=== PATIENT | male | born 1995 | race Caucasian/White ===

== ENCOUNTER 2017-10-03 09:15 | Emergency (ER) | payer OTHER, SELFPAY ==
[2017-10-03 11:28] VITALS: BP 123/80; PULSE 66; RESP 12; TEMP 36.3; O2SAT 99
--- NOTE | 2017-10-03 11:33 | ED.UPPEXIN ---
HPI - Extremity Injury (Upper) General Chief Complaint: Trauma Stated Complaint: hammered left hand today Time Seen by Provider: 10/03/17 09:59 Source: patient Mode of arrival: ambulatory Limitations: no limitations History of Present Illness HPI narrative: Patient is here for evaluation after he hit the left palm of his hand with a hammer while at work today. States that he came in to get evaluated to make sure he did have an infection. States this did happen earlier today. No other injuries from the event. Did wash it out prior to arrival. Unsure of his last tetanus shot. Related Data Home Medications Medication Instructions Recorded Confirmed albuterol sulfate 1 puff INHALATION PRN PRN 10/03/17 10/03/17 loratadine [Claritin] 10 mg PO DAILY PRN 10/03/17 10/03/17 Previous Rx's Medication Instructions Recorded cephalexin [Keflex] 500 mg PO Q12H 7 Days #14 cap 10/03/17 Allergies Allergy/AdvReac Type Severity Reaction Status Date / Time No Known Drug Allergies Allergy Verified 10/03/17 11:31 Review of Systems Constitutional Denies chills, Denies fever(s), Denies lethargy and Denies weakness Musculoskeletal Comments: Pain to his left hand Integumentary/Breasts Comments: Two cuts to the palm of his left hand Neurologic Denies weakness Comments: No numbness tingling left hand Hematologic/Lymphatic Denies easy bruising Exam Initial Vital Signs Initial Vital Signs: Vital Signs Temperature 97.3 F L 10/03/17 11:28 Pulse Rate 66 10/03/17 11:28 Respiratory Rate 12 10/03/17 11:28 Blood Pressure 123/80 H 10/03/17 11:28 Pulse Oximetry 99 10/03/17 11:28 Const General: cooperative and well developed Nutritional Appearance: well nourished Orientation: alert, awake, oriented x3 and not confused Skin Other: Patient with 2 1 cm cut to the thenar aspect of his left palm consistent with his stated history Neuro Other: Sensation intact to light touch left upper extremity Extrem Other: Full range of motion left wrist Full range of motion of left MCP joint of thumb. No snuffbox tenderness Remainder of left hand unremarkable Course Orders Ordered: ED Orders 10/03/17 11:35 XR hand LT min 3V Stat Discontinued Medications Diphtheria/Tetanus/Acell Pertussis (Adacel) 0.5 ml IM .ONCE ONE Stop: 10/03/17 11:36 Last Admin: 10/03/17 12:30 Dose: 0.5 ml Vital Signs - 8 hr 10/03/17 11:28 10/03/17 12:30 Temperature 97.3 F L Pulse Rate 66 66 Respiratory Rate 12 16 Blood Pressure 123/80 H Blood Pressure [Left Arm] 129/85 H Pulse Oximetry 99 98 MDM - Extremity Injury (Upper) Imaging Data Left hand x-ray: Radiologist's impression: ROCEDURE: XR HAND LT MIN 3V INDICATIONS: Trauma thenar eminence TECHNIQUE: 3 views of the hand(s) acquired. COMPARISON: None. FINDINGS: Bones: No fractures or dislocations. Carpal bones are normally aligned. No suspicious bony lesions. Soft tissues: No suspicious soft tissue calcifications. IMPRESSION: No fracture or foreign body. Dictated by: Misha Guerrero M.D. on 10/03/2017 at 11:50 MDM Narrative Medical decision making narrative: Patient's left hand was irrigated. No fractures on the x-ray. No indication for suturing. His tetanus shot was updated. His work forms were filled out. Secondary to the location of the injury and the fact that it was the call aspect of a hammer will start on antibiotics. Patient was given return precautions. He expressed understanding and agreement with plan Discharge Plan Departure Patient Disposition: Home, Self-Care Clinical Impression: Injury of hand, right Discharge Date/Time: 10/03/17 12:37 Interventions: ED Discharge Assessment Last Done: 10/03/17 12:37 Instructions: DI for Hand Injury Activity Restrictions/Additional Instructions: Keep the wound clean and dry. You can shower and wash your hands like normal and I encourage you to do this. Do not soak your hand anything. Take the antibiotics as directed. Return to the emergency department for any new or worsening symptoms Prescriptions: New cephalexin [Keflex] 500 mg capsule 500 mg PO Q12H 7 Days Qty: 14 RF: 0 No Action albuterol sulfate 90 mcg/actuation Hfa Aerosol Inhaler 1 puff Inhalation PRN PRN (Reason: Shortness Of Breath) RF: 0 loratadine [Claritin] 10 mg Tablet 10 mg PO DAILY PRN (Reason: Allergy Symptoms) RF: 0
[2017-10-03 12:30] VITALS: BP 129/85; PULSE 66; RESP 16; O2SAT 98
[2017-10-03] MEDS: TET,DIPH,PERTUSS(ACELL),VAC/PF 0.5 ML SYRINGE IM (12:30)
== END 2017-10-03 12:37 | disposition home or self-care (01) ==
PROVIDERS: Emergency Provider Emergency Medicine
DX: S69.92XA Unspecified injury of left wrist, hand and finger(s), initial encounter (principal); W27.8XXA Contact with other nonpowered hand tool, initial encounter; Y99.0 Civilian activity done for income or pay
CPT/HCPCS: 73130; 90471; 99282; 99283; 90715